=== PATIENT | female | born 1990 ===

== ENCOUNTER 2017-05-29 13:27 | Emergency (ER) | payer MEDICAID ==
[2017-05-29 13:27] VITALS: BMI 28.1
--- NOTE | 2017-05-29 14:28 | ED PDOC ---
HPI: SOB/CHF/COPD Time Seen by Provider: 05/29/17 13:43 Chief Complaint (Nursing): Shortness Of Breath Chief Complaint (Provider): Shortness of Breath and Chest Tightness History Per: Patient History/Exam Limitations: no limitations Onset/Duration Of Symptoms: Mins (just prior to arrival) Current Symptoms Are (Timing): Still Present Exacerbating Factor(s): Other (sitting down) Additional Complaint(s): 26 y/o female with no past medical problems, presents to the ED complaining of shortness of breath and chest tightness, with an onset just prior to arrival. Patient reports of simply sitting down and eating normal earlier today, but then suddenly began to have trouble breathing and experiencing some shortness of breath, which worsened when she sat down. Some methods she took to combat this was trying to use her daughters nebulizer and steam, but experienced no relief. Of note, the patient did not travel recently, reports of no leg swelling , and is currently not on oral contraceptive pills. Past Medical History Reviewed: Historical Data, Nursing Documentation, Vital Signs Vital Signs: Last Vital Signs Temp 98.6 F 05/29/17 17:55 Pulse 94 H 05/29/17 17:55 Resp 13 05/29/17 17:55 BP 142/74 05/29/17 17:55 Pulse Ox 100 05/29/17 17:55 - Medical History PMH: No Chronic Diseases Denies: Depression - Surgical History Surgical History: - Family History Family History: States: Unknown Family Hx - Social History Current smoker - smoking cessation education provided: No Alcohol: None Drugs: Denies - Home Medications Home Medications: Ambulatory Orders Medication Instructions Recorded Acetaminophen/Hydrocodone Bi 1 tab PO QID PRN #10 tab 12/12/14 [Vicodin 300 mg-5 mg] Cephalexin [Keflex] 500 mg PO QID 10 Days cap 12/12/14 Naproxen Sodium [Aleve] 220 mg PO Q6 PRN 12/12/14 Albuterol 0.083% [Albuterol 0.083% 3 ml IH Q6H PRN #30 neb 05/29/17 Inhal Thao (2.5 mg/3 ml) UD] Nebulizer [Compact Compressor 1 dev XX PRN PRN #1 dev 05/29/17 Nebulizer] - Allergies Allergies/Adverse Reactions: Allergies Allergy/AdvReac Type Severity Reaction Status Date / Time ibuprofen [From Motrin] Allergy URTICARIA Verified 05/29/17 13:34 Review of Systems ROS Statement: Except As Marked, All Systems Reviewed And Found Negative Cardiovascular: Positive for: Other (chest tightness) Respiratory: Positive for: Shortness of Breath Musculoskeletal: Negative for: Other (leg swelling) Physical Exam - Reviewed Nursing Documentation Reviewed: Yes Vital Signs Reviewed: Yes - Physical Exam Appears: Positive for: Non-toxic, No Acute Distress Head Exam: Positive for: ATRAUMATIC Skin: Positive for: Normal Color, Warm Eye Exam: Positive for: Normal appearance, EOMI, PERRL Cardiovascular/Chest: Positive for: Regular Rate, Rhythm. Negative for: Murmur Respiratory: Positive for: Normal Breath Sounds. Negative for: Respiratory Distress Back: Positive for: Normal Inspection Extremity: Positive for: Normal ROM. Negative for: Pedal Edema, Calf Tenderness , Deformity, Swelling (no leg edema) Neurologic/Psych: Positive for: Alert, Oriented. Negative for: Motor/Sensory Deficits - Laboratory Results Result Diagrams: 05/29/17 14:40 05/29/17 14:40 - ECG O2 Sat by Pulse Oximetry: 100 (RA) Pulse Ox Interpretation: Normal Medical Decision Making Medical Decision Making: Time: --14:12 Impression: --26 y/o female with dyspnea and chest tightness Plan: --EKG --Labs --Troponin --ED UDip --ED Urine --D Dimer Coag --Partial Thromboplastin Time --Prothrombin Time --Chest X-ray --Urinalysis Reassess -- Time: 16:15 CHEST XR FINDINGS: LUNGS: No active pulmonary disease. PLEURA: No significant pleural effusion identified. No pneumothorax apparent. CARDIOVASCULAR: Normal. OSSEOUS STRUCTURES: No significant abnormalities. VISUALIZED UPPER ABDOMEN: Normal. OTHER FINDINGS: None. IMPRESSION: No interval acute cardiopulmonary disease appreciated. Time: 16:56 CT CHEST FINDINGS: PULMONARY ARTERIES: Unremarkable. No pulmonary embolism. AORTA: No acute findings. No thoracic aortic aneurysm. LUNGS: Unremarkable. No nodule, mass or pulmonary consolidation. PLEURAL SPACES: Unremarkable. No effusion or pneuomothorax. HEART: Unremarkable. No cardiomegaly. No significant pericardial effusion. LYMPH NODES: No lymphadenopathy. BONES, CHEST WALL: Unremarkable. No fracture or destructive lesion OTHER FINDINGS: Thoracic inlet appears unremarkable. IMPRESSION: Unremarkable CT pulmonary angiogram. No pulmonary embolus. No infiltrate, pleural or pericardial effusion or pneumothorax. No cardiomegaly or significant lymphadenopathy. No significant interval change appreciable. Scribe Attestation: Documented by Barrington Castillo acting as a scribe for Zuleika Merida MD. Disposition - Clinical Impression Clinical Impression: Dyspnea - Disposition Disposition: Routine/Home Disposition Time: 17:18 Condition: STABLE Additional Instructions: FOLLOW-UP WITH [facility] WITHIN 2 DAYS FOR REEVALUATION. Prescriptions: Albuterol 0.083% [Albuterol 0.083% Inhal Thao (2.5 mg/3 ml) UD] 3 ml IH Q6H PRN # 30 neb PRN Reason: Shortness Of Breath Nebulizer [Compact Compressor Nebulizer] 1 dev XX PRN PRN #1 dev PRN Reason: Shortness Of Breath Instructions: Dyspnea (ED) Forms: [employer] (Nepalese)
[2017-05-29 14:47] LABS: BASO # 0.2 K/uL (0.0-0.2); BASO % 1.2 % (0.0-2.0); EOS # 0.1 K/uL (0.0-0.7); EOS % 0.9 % (0.0-4.0); LYMPH # 1.8 K/uL (1.0-4.3); MEAN CELL VOLUME 86.5 fl (81.0-99.0); MEAN CORPUSCULAR HEMOGLOBIN 27.8 pg (27.0-31.0); MEAN CORPUSCULAR HGB CONC 32.2 g/dL (33.0-37.0); MEAN PLATELET VOLUME 7.6 fl (7.2-11.7); MONO # 0.8 K/uL (0.0-0.8); MONO % 5.4 % (0.0-10.0); NEUT % 80.5 % (50.0-75.0); NRBC % 0.1 % (0.0-0.0); RED CELL DISTRIBUTION WIDTH 13.7 % (11.5-14.5); WHITE BLOOD COUNT 14.9 K/uL (4.8-10.8)
[2017-05-29 14:58] LABS: ALKALINE PHOSPHATASE 53 U/L (38-126); ALT/SGPT 31 U/L (9-52); AST/SGOT 24 U/L (14-36); BILIRUBIN,TOTAL 0.7 mg/dl (0.2-1.3); BLOOD UREA NITROGEN 12 mg/dl (7-17); CARBON DIOXIDE 23 mmol/L (22-30); CHLORIDE 108 mmol/L (98-107); GFR AFRICAN-AMERICAN > 60; GLUCOSE,RANDOM 84 mg/dL (65-105); POTASSIUM 3.5 MMOL/L (3.6-5.0); SODIUM 144 mmol/l (132-148); TOTAL PROTEIN 8.7 G/DL (6.3-8.2)
[2017-05-29] MEDS ORDERED: Potassium Chloride 20 mEq ER Tab PO STA (15:00)
[2017-05-29 15:01] LABS: PARTIAL THROMBOPLASTIN TIME 28.5 Seconds (25.6-37.1)
[2017-05-29 15:15] LABS: ALB/GLOB RATIO 1.2 (1.0-2.1)
[2017-05-29] MEDS ORDERED: Potassium Chloride 20 mEq ER Tab PO ONE (15:29)
[2017-05-29] MEDS ORDERED: Iodixanol 320 MG/ML 100 ML BOTTLE IV ONE (15:58)
--- NOTE | 2017-05-29 16:16 | RAD ---
HISTORY: SOB COMPARISON: Chest radiographs 08/19/2011. TECHNIQUE: Chest PA and lateral FINDINGS: LUNGS: No active pulmonary disease. PLEURA: No significant pleural effusion identified. No pneumothorax apparent. CARDIOVASCULAR: Normal. OSSEOUS STRUCTURES: No significant abnormalities. VISUALIZED UPPER ABDOMEN: Normal. OTHER FINDINGS: None. IMPRESSION: No interval acute cardiopulmonary disease appreciated.
[2017-05-29 16:31] LABS: RBC URINE 12 /hpf (0-3); URINE BILIRUBIN NEGATIVE (NEGATIVE); URINE BLOOD MODERATE (NEGATIVE); URINE COLOR YELLOW (YELLOW); URINE GLUCOSE (UA) NEG (Normal); URINE KETONE TRACE mg/dL (NEGATIVE); URINE LEUKOCYTE ESTERASE NEG Leu/uL (Negative); URINE PROTEIN 30 mg/dL (NEGATIVE); URINE UROBILINOGEN 0.2-1.0 mg/dL (0.2-1.0); WBC URINE 1 /hpf (0-5)
--- NOTE | 2017-05-29 16:58 | CT ---
PROCEDURE: CT Chest with contrast (Pulmonary Angiogram) HISTORY: SOB, chest tightness COMPARISON: Chest CT with contrast 08/19/2010. TECHNIQUE: Axial computed tomography images were obtained of the chest in the pulmonary arterial phase of enhancement. Coronal and sagittal reformatted images were created and reviewed. Intravenous contrast dose: Visipaque 320, 90 cc Radiation dose: Total exam DLP = 343.75 mGy-cm. This CT exam was performed using one or more of the following dose reduction techniques: Automated exposure control, adjustment of the mA and/or kV according to patient size, and/or use of iterative reconstruction technique. FINDINGS: PULMONARY ARTERIES: Unremarkable. No pulmonary embolism. AORTA: No acute findings. No thoracic aortic aneurysm. LUNGS: Unremarkable. No nodule, mass or pulmonary consolidation. PLEURAL SPACES: Unremarkable. No effusion or pneuomothorax. HEART: Unremarkable. No cardiomegaly. No significant pericardial effusion. LYMPH NODES: No lymphadenopathy. BONES, CHEST WALL: Unremarkable. No fracture or destructive lesion OTHER FINDINGS: Thoracic inlet appears unremarkable. IMPRESSION: Unremarkable CT pulmonary angiogram. No pulmonary embolus. No infiltrate, pleural or pericardial effusion or pneumothorax. No cardiomegaly or significant lymphadenopathy. No significant interval change appreciable.
[2017-05-29 17:18] VITALS: O2SAT 100
[2017-05-29 19:32] VITALS: BP 142/74; PULSE 94; RESP 13; TEMP 98.6
--- NOTE | 2017-05-30 17:40 | CARD ---
APPROVED REPORT EKG Measurement Heart [id number] <Conclusion> Normal sinus rhythm Normal ECG
== END 2017-05-29 17:55 | disposition home or self-care (01) ==
LOC: H.ER 13:27
DX: R06.00 Dyspnea, unspecified (principal); J44.9 Chronic obstructive pulmonary disease, unspecified
CPT/HCPCS: 71020; 71275; 80053; 81003; 81025; 84484; 85025; 85378; 85610; 85730; 93005; 99284; Q9967

== ENCOUNTER 2017-08-17 10:14 | Emergency (ER) | payer SELFPAY ==
--- NOTE | 2017-08-17 10:36 | ED PDOC ---
HPI: CCC, URI, Sore Throat Time Seen by Provider: 08/17/17 10:33 Chief Complaint (Nursing): Flu-like Symptoms History Per: Patient Onset/Duration Of Symptoms: Days (2) Associated Symptoms: Fever, Cough, Sputum (yellow) Severity: Moderate Additional Complaint(s): Cough productive yellow sputum assoc with fever and chest discomfort when coughing x 2 days. No SOB Past Medical History Vital Signs: Last Vital Signs Temp 101.9 F H 08/17/17 12:08 Pulse 111 H 08/17/17 10:30 Resp 20 08/17/17 10:30 BP 111/69 08/17/17 10:30 Pulse Ox 100 08/17/17 10:30 - Medical History PMH: Asthma Denies: Depression - Surgical History Surgical History: - Family History Family History: States: Unknown Family Hx - Home Medications Home Medications: Ambulatory Orders Medication Instructions Recorded Acetaminophen/Hydrocodone Bi 1 tab PO QID PRN #10 tab 12/12/14 [Vicodin 300 mg-5 mg] Cephalexin [Keflex] 500 mg PO QID 10 Days cap 12/12/14 Naproxen Sodium [Aleve] 220 mg PO Q6 PRN 12/12/14 Albuterol 0.083% [Albuterol 0.083% 3 ml IH Q6H PRN #30 neb 05/29/17 Inhal Thao (2.5 mg/3 ml) UD] Nebulizer [Compact Compressor 1 dev XX PRN PRN #1 dev 05/29/17 Nebulizer] Albuterol HFA [Ventolin HFA 90 2 puff IH Q4H #1 puff 08/17/17 mcg/actuation (8 g)] Azithromycin [Zithromax] 250 mg PO DAILY #6 tab 08/17/17 Oseltamivir [Tamiflu] 75 mg PO BID #10 cap 08/17/17 - Allergies Allergies/Adverse Reactions: Allergies Allergy/AdvReac Type Severity Reaction Status Date / Time ibuprofen [From Motrin] Allergy URTICARIA Verified 05/29/17 13:34 Review of Systems Constitutional: Positive for: Fever Respiratory: Positive for: Cough, Pleuritic Pain, Sputum. Negative for: Shortness of Breath Physical Exam - Physical Exam Appears: Positive for: Non-toxic, No Acute Distress Skin: Positive for: Normal Color, Warm, DRY Cardiovascular/Chest: Positive for: Regular Rate, Rhythm Respiratory: Positive for: Rhonchi. Negative for: Wheezing, Respiratory Distress Extremity: Positive for: Normal ROM Neurologic/Psych: Positive for: Alert, Oriented Disposition - Clinical Impression Clinical Impression: Influenza-like symptoms, Bronchitis - Patient ED Disposition Is Patient to be Admitted: No Counseled Patient/Family Regarding: Studies Performed, Diagnosis, Need For Followup, Rx Given - Disposition [facility]errals: [facility] [Outside] Disposition: Routine/Home Disposition Time: 12:27 Condition: FAIR Prescriptions: Albuterol HFA [Ventolin HFA 90 mcg/actuation (8 g)] 2 puff IH Q4H #1 puff Azithromycin [Zithromax] 250 mg PO DAILY #6 tab Oseltamivir [Tamiflu] 75 mg PO BID #10 cap Instructions: Acute Bronchitis Forms: [facility] (Estonian)
[2017-08-17 12:13] VITALS: BMI 26.6
--- NOTE | 2017-08-17 12:56 | RAD ---
HISTORY: cough COMPARISON: 05/29/2017 TECHNIQUE: Chest PA and lateral FINDINGS: LUNGS: No active pulmonary disease. PLEURA: No significant pleural effusion identified. No pneumothorax apparent. CARDIOVASCULAR: Normal. OSSEOUS STRUCTURES: No significant abnormalities. VISUALIZED UPPER ABDOMEN: Normal. OTHER FINDINGS: None. IMPRESSION: No active disease. No significant interval change compared to the prior examination(s).
[2017-08-17 13:00] VITALS: BP 110/68; PULSE 82; RESP 18; TEMP 99; O2SAT 98
== END 2017-08-17 13:00 | disposition home or self-care (01) ==
LOC: H.ER 10:14
DX: J40 Bronchitis, not specified as acute or chronic (principal); J11.1 Influenza due to unidentified influenza virus with other respiratory manifestations; Z88.6 Allergy status to analgesic agent; J45.909 Unspecified asthma, uncomplicated